=== PATIENT | female | born 1965 | race African-American/Black ===

== ENCOUNTER → 2016-06-04 | Outpatient (CLI) | payer BC ==
--- NOTE | ~2016-06-04 | MY11 ---
[facility] A Service of [facility] RADIOLOGY TEXT RESULTS PATIENT: TRISH MOHAN LOCATION: [facility] : 65 UNIT #: [id number] AGE: [address]: Roma Carpio APRN SEX: F ORDER DR: [id number] [facility] [address] [place], [place] [address] [id number] O MR#: [id number] Acc #: [id number] NAME: TRISH MOHAN : 1965 SEX: F STUDY DATE/TIME: 06/04/2016 15:27 UNIT: [facility] ROOM: STUDY DESCRIPTION: MY Mammogram Screening Dig Sanchez Attending Physician: Roma Carpio A.P.R.N. Ordering Physician: Roma Carpio A.P.R.N. Primary Care Physician: Karin Wilson M.D. MEDICAL IMAGING REPORT This report is preliminary unless electronic signature is present EXAM Bilateral Digital Screening Mammogram with CAD INDICATION Breast cancer screening. 51-year-old asymptomatic female who reports a grandmother with postmenopausal breast cancer. COMPARISON May 29, 2015, February 28, 2014, March 01, 2013, January 08, 2012. FINDINGS There are scattered fibroglandular tissues. No suspicious findings are present. IMPRESSION No mammographic evidence of malignancy. Annual screening mammography and clinical breast exam are recommended. A result letter will be sent to the patient. Patients over the age of 40 are entered into a reminder system with target due date for the next mammogram. BIRADS: 1 Negative Dictated by... Jero Matamoros M.D. THIS IS AN ELECTRONICALLY VERIFIED REPORT Jero Matamoros M.D. at 06/07/2016 4:48 PM [facility]/demi [facility] A Service [facility] RADIOLOGY TEXT RESULTS PATIENT: TRISH MOHAN LOCATION: [facility] : 65 UNIT #: [id number] AGE: [address]: Roma Carpio APRN SEX: F ORDER DR: TD: 06/05/2016 08:11 JOB #: [id number] MEDICAL IMAGING REPORT Page 1 of 1 COPY
== END | disposition home or self-care (01) ==
LOC: CWCC 15:22
DX: Z12.31 Encounter for screening mammogram for malignant neoplasm of breast (principal); Z80.3 Family history of malignant neoplasm of breast
CPT/HCPCS: G0202